=== PATIENT | female | born 2000 | race Caucasian/White ===

== ENCOUNTER 2021-02-15 23:02 | Emergency (ER) | payer BC ==
[2021-02-15] MEDS ORDERED: Ibuprofen 400 MG Tab PO ONE (23:30)
--- NOTE | 2021-02-15 23:57 | EDM.PDOC ---
ED HPI GENERAL MEDICAL PROBLEM - General Chief Complaint: ENT Problem Stated Complaint: LT EAR COMPLAINT Time Seen by Provider: 02/15/21 23:55 Source of Information: Reports: Patient History Limitations: Reports: No Limitations - History of Present Illness INITIAL COMMENTS - FREE TEXT/NARRATIVE: Patient is a 20-year-old female presenting with a chief complaint of ear fullness and ear pain on the left side. Patient states that yesterday, she noticed some nasal congestion, sore throat in the this afternoon she developed some fullness in her left ear. She put some hydrogen peroxide in her ear which seemed to improve her throat symptoms but her ear seem to be no different. Otherwise, she is taken some Mucinex with little relief. She denies fevers, chills, body aches, shortness of breath, discharge from the ear, bleeding from the ear. She is unvaccinated against COVID-19. She has no other medical issues. Left Ear Pain Score (Numeric/FACES): 3 - Related Data Allergies Allergy/AdvReac Type Severity Reaction Status Date / Time No Known Allergies Allergy Verified 02/15/21 23:16 Home Meds: Home Meds Escitalopram Oxalate [Lexapro] 10 mg PO BEDTIME 02/15/21 [History] Past Medical History Psychiatric History: Reports: Anxiety, Depression Social & Family History - Tobacco Use Years of Tobacco use: 4 - Caffeine Use Caffeine Use: Reports: Coffee, Soda - Recreational Drug Use Recreational Drug Use: No ED ROS ENT - Review of Systems Review Of Systems: Comprehensive ROS is negative, except as noted in HPI. ED EXAM, ENT - Physical Exam Exam: See Below Text/Narrative:: I have reviewed the triage vital signs Const: Well nourished, well developed, appears stated age Eyes: Pupils Equal and reactive to light bilaterally, no conjunctival injection HENT: No signs of trauma or swelling, Neck supple without meningismus. Tympanic membranes visualized bilaterally without abnormality. External canals normal bilaterally. Throat exam is unremarkable. Voice normal. CV: Regular Rate Rhythm, Warm, well-perfused extremities RESP: Unlabored respiratory effort GI: soft, non-tender, non-distended, no masses MSK: No gross deformities appreciated Skin: Warm, dry. No rashes Neuro: Alert, medical secretary II-XII grossly intact. Sensation and motor function of extremities grossly intact. Psych: Appropriate mood and affect. Course - Vital Signs Last Recorded V/S: Last Vital Signs Temp 37.1 C 02/15/21 23:12 Pulse 83 02/15/21 23:12 Resp 20 02/15/21 23:12 BP 137/86 02/15/21 23:12 Pulse Ox 100 02/15/21 23:12 - Orders/Labs/Meds Labs: Laboratory Tests 02/15/21 Range/Units 23:30 SARS-CoV-2 RNA (DARÍO) Negative (NEGATIVE) Meds: Medications Discontinued Medications Generic Name Dose Route Start Last Admin Trade Name Maurisio PRN Reason Stop Dose Admin Ibuprofen 400 mg 02/15/21 23:30 02/15/21 23:37 Ibuprofen 400 Mg Tab PO 02/15/21 23:31 400 mg ONETIME ONE Administration Departure - Departure Time of Disposition: 00:47 Disposition: Home, Self-Care 01 Clinical Impression: Viral URI - Discharge Information Instructions: Upper Respiratory Infection, Adult, [id number] Referrals: PCP,Unobtain [Primary Care Provider] - Forms: ED Department Discharge Additional Instructions: I recommend drinking plenty of fluids. In addition, I recommend use of ibuprofen 600 mg every 8 hours along with saline nasal spray to help reduce congestion. Follow-up with primary care provider in the next 1 to 2 days. Sepsis Event Note (ED) - Evaluation Sepsis Screening Result: No Definite Risk - Focused Exam Vital Signs: Vital Signs Temp Pulse Resp BP Pulse Ox 02/15/21 23:12 37.1 C 83 20 137/86 100 - Assessment/Plan Assessment:: Patient is 20-year-old female with signs and symptoms consistent with URI. No evidence of otitis media, externa, COVID-19. Vital signs stable. Patient discharged with outpatient follow-up.
== END 2021-02-16 00:57 | disposition home or self-care (01) ==
LOC: JD.ED 23:02
DX: J06.9 Acute upper respiratory infection, unspecified (principal); Z72.0 Tobacco use; Z20.822 Contact with and (suspected) exposure to COVID-19
CPT/HCPCS: 87635; 99283; A9270; U0002

== ENCOUNTER 2023-02-01 17:41 | Emergency (ER) | payer BC | END 2023-02-01 21:40 | disposition home or self-care (01) | LOC: JD.ED 17:41 | DX: O20.0 Threatened abortion (principal); O36.0111 Maternal care for anti-D [Rh] antibodies, first trimester, fetus 1; Z3A.01 Less than 8 weeks gestation of pregnancy | CPT/HCPCS: 36415; 76817; 76817-26; 84702; 86900; 86901; 99284; J2790 ==

== ENCOUNTER 2023-03-15 12:54 | Emergency (ER) | payer BC ==
[2023-03-15] MEDS ORDERED: Ondansetron 4 MG/2 ML SDV IVPUSH ONE (13:41)
[2023-03-15] MEDS ORDERED: Sodium Chloride 0.9% 1,000 ML IV STA (13:41)
[2023-03-15] MEDS ORDERED: Sodium Chloride 0.9% 10 ML Syringe FLUSH PRN (13:41)
[2023-03-15 14:22] LABS: BASOPHILS PERCENT AUTO 0.4 % (0.0-1.0); EOSINOPHILS ABSOLUTE AUTO 0.1 K/mm3 (0.0-0.4); HEMATOCRIT 35.2 % (37.0-47.0); HEMOGLOBIN 12.2 gm/dl (12.0-16.0); IMMATURE GRAN ABSOLUTE AUTO 0.03 K/mm3 (0.00-0.05); IMMATURE GRAN PERCENT AUTO 0.3 % (0.0-0.4); LYMPHOCYTES ABSOLUTE AUTO 1.8 K/mm3 (1.0-4.8); LYMPHOCYTES PERCENT AUTO 19.1 % (24.0-44.0); MEAN CORPUSCULAR HEMOGLOBIN 27.7 pg (28.0-32.0); MEAN CORPUSCULAR HGB CONC 34.7 g/dl (32.0-36.0); MEAN PLATELET VOLUME 10.5 fl (9.4-12.3); MONOCYTES ABSOLUTE AUTO 0.6 K/mm3 (0.0-0.8); NEUTROPHILS ABSOLUTE AUTO 6.8 K/mm3 (1.8-7.7); NEUTROPHILS PERCENT AUTO 73.2 % (41.0-71.0); PLATELET COUNT,PLT 216 K/mm3 (150-400); WHITE BLOOD CELL COUNT,WBC 9.33 K/mm3 (3.9-11.3)
[2023-03-15 14:45] LABS: A/G RATIO 0.8 (1-2); ALBUMIN 3.3 g/dl (3.4-5.0); ANION GAP 15.6 (5-15); BILIRUBIN TOTAL 0.5 mg/dL (0.2-1.0); BUN/CREATININE RATIO 13.3 (14-18); CALCIUM 8.9 mg/dL (8.5-10.1); CREATININE 0.6 mg/dL (0.55-1.02); EST CRCL DRUG DOSING (CG) 133.46 mL/min; POTASSIUM,K 3.6 mEq/L (3.5-5.1); PROTEIN TOTAL,TP 7.3 g/dl (6.4-8.2)
[2023-03-15 16:06] LABS: APPEARANCE,URINE SLT CLOUDY (Clear); BILIRUBIN,URINE NEGATIVE (Negative); COLOR,URINE YELLOW (Yellow); GLUCOSE,URINE NEGATIVE (Negative); KETONES,URINE 2+ (Negative); LEUKOCYTE ESTERASE,URINE TRACE (Negative); NITRITE,URINE POSITIVE (Negative); OCCULT BLOOD,URINE NEGATIVE (Negative); PROTEIN,URINE NEGATIVE (Negative)
[2023-03-15 16:37] LABS: BACTERIA,URINE MANY /hpf (FEW); MUCUS,URINE FEW /hpf (FEW); RBC,URINE 0-5 /hpf (0-5); WBC,URINE 40-50 /hpf (0-5)
== END 2023-03-15 17:00 | disposition home or self-care (01) ==
LOC: JD.ED 12:54
DX: O21.9 Vomiting of pregnancy, unspecified (principal); O23.91 Unspecified genitourinary tract infection in pregnancy, first trimester; Z3A.13 13 weeks gestation of pregnancy
CPT/HCPCS: 36415; 80053; 81001; 85025; 87086; 87088; 87186; 96361; 96374; 99283; 99284-25; J2405; J3490; J7030

== ENCOUNTER 2023-09-13 13:34 | Inpatient (IN) | payer BC ==
[2023-09-13] MEDS ORDERED: Calcium Carbonate 500 MG Tab.Chew PO PRN (14:29)
[2023-09-13] MEDS ORDERED: Lidocaine 1% 50 ML MDV INJECT PRN (14:29)
[2023-09-13] MEDS ORDERED: Nalbuphine 10 MG/ML Syringe IVPUSH PRN (14:29)
[2023-09-13 14:49] LABS: BASOPHILS ABSOLUTE AUTO 0.1 K/mm3 (0.0-0.2); BASOPHILS PERCENT AUTO 0.5 % (0.0-1.0); EOSINOPHILS PERCENT AUTO 0.3 % (0.0-6.0); HEMATOCRIT 33.6 % (37.0-47.0); HEMOGLOBIN 10.6 gm/dl (12.0-16.0); IMMATURE GRAN ABSOLUTE AUTO 0.08 K/mm3 (0.00-0.05); IMMATURE GRAN PERCENT AUTO 0.6 % (0.0-0.4); LYMPHOCYTES ABSOLUTE AUTO 1.7 K/mm3 (1.0-4.8); LYMPHOCYTES PERCENT AUTO 13.8 % (24.0-44.0); MEAN CORPUSCULAR HEMOGLOBIN 23.8 pg (28.0-32.0); MEAN CORPUSCULAR HGB CONC 31.5 g/dl (32.0-36.0); MEAN CORPUSCULAR VOLUME 75.5 fl (83.0-99.0); MEAN PLATELET VOLUME 11.8 fl (9.4-12.3); MONOCYTES ABSOLUTE AUTO 1.2 K/mm3 (0.0-0.8); MONOCYTES PERCENT AUTO 9.8 % (0.0-8.0); NEUTROPHILS ABSOLUTE AUTO 9.3 K/mm3 (1.8-7.7); PLATELET COUNT,PLT 251 K/mm3 (150-400); RED BLOOD CELL COUNT 4.45 M/mm3 (4.10-5.30); WHITE BLOOD CELL COUNT,WBC 12.39 K/mm3 (3.9-11.3)
[2023-09-13 14:51] LABS: CREATININE 0.9 mg/dL (0.55-1.02); EST CRCL DRUG DOSING (CG) 88.23 mL/min; URIC ACID 4.3 mg/dL (2.6-6.0)
[2023-09-13 15:00] LABS: CREATININE,URINE RAND 69.2 mg/dL (30.0-125.0); PROTEIN CREATININE RATIO,URINE 465.3 mg/g (0-149); PROTEIN,URINE RANDOM 32.2 mg/dL (0.0-11.8)
[2023-09-13] MEDS: Oxytocin/Lactated Ringers 30 UNIT/500 ML BAG IV SCH (15:40)
[2023-09-13] MEDS: Lactated Ringers 1,000 ML IV SCH (15:40)
[2023-09-13] MEDS: Ondansetron 4 MG/2 ML SDV IVPUSH PRN (17:30)
[2023-09-13] MEDS ORDERED: diphenhydrAMINE 50 MG/ML SDV IVPUSH PRN (19:56)
[2023-09-13] MEDS ORDERED: ePHEDrine 50 MG/ML SDV IVPUSH PRN (19:56)
[2023-09-13] MEDS: fentaNYL 100 MCG/2 ML SDV EPIDUR PRN (20:08)
[2023-09-13] MEDS: Bupivacaine/fentaNYL/NS 100 ML Bag EPIDUR PRN (20:09)
[2023-09-14] MEDS ORDERED: Bupivacaine 0.25% 10 ML SDV ONE
[2023-09-14] MEDS: Oxytocin/Lactated Ringers 30 UNIT/500 ML BAG IV SCH (01:16)
[2023-09-14] MEDS: Benzocaine/Menthol 20%-0.5% Spray 78 GM Cannister TOP PRN (02:47)
[2023-09-14] MEDS: Witch Hazel Medicated Pads 40/Jar TOP PRN (02:47)
[2023-09-14] MEDS: Ibuprofen 600 MG Tab PO SCH (02:52)
[2023-09-14] MEDS: Acetaminophen 325 MG Tab PO PRN (12:08)
[2023-09-14] MEDS: Docusate Sodium 100 MG Cap PO PRN (12:08)
== END 2023-09-15 13:25 | disposition home or self-care (01) | DRG 560 ==
LOC: JD.OBCHECK 13:34 → JD.OB 13:40 → JD.OBCHECK 15:32 → JD.OB 15:32 → OBSVTOIN 09-14 00:56 → JD.OB 09-14 00:57
PROVIDERS: ADMIT Obstetrics & Gynecology; ATTEND Obstetrics & Gynecology
PROC: 10E0XZZ Delivery of Products of Conception, External Approach (ICD-10-PCS; principal; 2023-09-14)
PROC: 10907ZC Drainage of Amniotic Fluid, Therapeutic from Products of Conception, Via Natural or Artificial Opening (ICD-10-PCS; 2023-09-14)
PROC: 3E033VJ Introduction of Other Hormone into Peripheral Vein, Percutaneous Approach (ICD-10-PCS; 2023-09-14)
PROC: 0UQMXZZ Repair Vulva, External Approach (ICD-10-PCS; 2023-09-14)
PROC: 3E0R3BZ Introduction of Anesthetic Agent into Spinal Canal, Percutaneous Approach (ICD-10-PCS; 2023-09-14)
PROC: 00HU33Z Insertion of Infusion Device into Spinal Canal, Percutaneous Approach (ICD-10-PCS; 2023-09-14)
PROC: 3E0334Z Introduction of Serum, Toxoid and Vaccine into Peripheral Vein, Percutaneous Approach (ICD-10-PCS; 2023-09-14)
DX: O14.04 Mild to moderate pre-eclampsia, complicating childbirth (principal); Z37.0 Single live birth; O70.0 First degree perineal laceration during delivery; O26.893 Other specified pregnancy related conditions, third trimester; Z67.41 Type O blood, Rh negative; Z3A.38 38 weeks gestation of pregnancy; Z86.16 Personal history of COVID-19
CPT/HCPCS: 36415; 51702; 59025; 59409; 82565; 82570; 83615; 84156; 84450; 84460; 84520; 84550; 85025; 85461; 86592; 86850; 86870; 86900; 86901; A9270-GY; J0665; J2405; J2790; J3010; J3490; J7120; J7999

== ENCOUNTER 2024-05-31 19:06 | Emergency (ER) | payer SELFPAY ==
[2024-05-31] MEDS ORDERED: Sodium Chloride 0.9% 10 ML Syringe FLUSH PRN (19:43)
[2024-05-31 19:50] LABS: BASOPHILS PERCENT AUTO 0.2 % (0.0-1.0); EOSINOPHILS ABSOLUTE AUTO 0.2 K/mm3 (0.0-0.4); EOSINOPHILS PERCENT AUTO 0.9 % (0.0-6.0); HEMOGLOBIN 10.2 gm/dl (12.0-16.0); IMMATURE GRAN ABSOLUTE AUTO 0.52 K/mm3 (0.00-0.05); LYMPHOCYTES ABSOLUTE AUTO 0.9 K/mm3 (1.0-4.8); LYMPHOCYTES PERCENT AUTO 3.6 % (24.0-44.0); MEAN CORPUSCULAR HEMOGLOBIN 27.1 pg (28.0-32.0); MEAN CORPUSCULAR VOLUME 79.8 fl (83.0-99.0); MEAN PLATELET VOLUME 11.5 fl (9.4-12.3); MONOCYTES ABSOLUTE AUTO 0.7 K/mm3 (0.0-0.8); MONOCYTES PERCENT AUTO 2.7 % (0.0-8.0); NEUTROPHILS PERCENT AUTO 90.6 % (41.0-71.0); PLATELET COUNT,PLT 258 K/mm3 (150-400); RED BLOOD CELL COUNT 3.76 M/mm3 (4.10-5.30); WHITE BLOOD CELL COUNT,WBC 25.44 K/mm3 (3.9-11.3)
[2024-05-31 20:05] LABS: A/G RATIO 0.4 (1-2); ALANINE AMINOTRANSFERASE,ALT 18 U/L (14-59); ALKALINE PHOSPHATASE 131 U/L (46-116); ANION GAP 14.5 (5-15); ASPARTATE AMNIOTRANSFERASE,AST 13 U/L (15-37); BILIRUBIN TOTAL 1.4 mg/dL (0.2-1.0); BLOOD UREA NITROGEN,BUN 8 mg/dL (7-18); BUN/CREATININE RATIO 8.9 (14-18); CALCIUM 8.5 mg/dL (8.5-10.1); CARBON DIOXIDE,CO2 21 mEq/L (21-32); CHLORIDE,CL 99 mEq/L (98-107); CREATININE 0.9 mg/dL (0.55-1.02); EST CRCL DRUG DOSING (CG) 87.48 mL/min; ESTIMATED GFR 92 mL/min (>60); GLUCOSE RANDOM 120 mg/dL (70-99); LIPASE 11 U/L (16-77); MAGNESIUM 1.7 mg/dL (1.8-2.4); POTASSIUM,K 3.5 mEq/L (3.5-5.1); PROTEIN TOTAL,TP 6.6 g/dl (6.4-8.2); SODIUM,NA 131 mEq/L (136-145)
[2024-05-31 20:07] LABS: TROPONIN I HIGH SENSITIVITY < 4 pg/mL (<=51)
[2024-05-31] MEDS: Sodium Chloride 0.9% 1,000 ML IV SCH (20:13)
[2024-05-31] MEDS: HYDROmorphone 0.5 MG/0.5 ML Syringe IVPUSH ONE (20:14)
[2024-05-31] MEDS: Metoclopramide 10 MG/2 ML SDV IVPUSH ONE (20:14)
[2024-05-31 21:38] LABS: APPEARANCE,URINE SLT CLOUDY (Clear); BILIRUBIN,URINE 1+ (Negative); COLOR,URINE DARK YELLOW (Yellow); GLUCOSE,URINE NEGATIVE (Negative); KETONES,URINE NEGATIVE (Negative); LEUKOCYTE ESTERASE,URINE 3+ (Negative); NITRITE,URINE POSITIVE (Negative); OCCULT BLOOD,URINE TRACE-INTACT (Negative); PH,URINE 6.5 (5.0-8.0); PROTEIN,URINE 3+ (Negative); UROBILINOGEN,URINE >=8.0 (0.2-1.0)
[2024-05-31 21:46] LABS: BACTERIA,URINE MANY /hpf (FEW); WBC,URINE TOO NUMEROUS TO CNT /hpf (0-5)
[2024-05-31 21:47] LABS: MUCUS,URINE FEW /hpf (FEW)
[2024-05-31] MEDS: cefTRIAXone 2 GM Vial IVPUSH ONE (22:59)
[2024-05-31] MEDS: Acetaminophen 325 MG Tab PO ONE (23:54)
== END 2024-05-31 23:50 | disposition home or self-care (01) ==
LOC: JD.ED 19:06
DX: O23.02 Infections of kidney in pregnancy, second trimester (principal); Z86.16 Personal history of COVID-19; Z79.82 Long term (current) use of aspirin; Z79.899 Other long term (current) drug therapy; Z3A.24 24 weeks gestation of pregnancy
CPT/HCPCS: 36415; 71045; 80053; 81001; 83690; 83735; 84484; 85025; 87428; 93005; 96361; 96374; 96375; 99285; A9270; J0696; J2765; J7030; 93010; 99284

== ENCOUNTER 2024-09-16 00:26 | Inpatient (IN) | payer SELFPAY ==
[2024-09-16] MEDS ORDERED: Ondansetron 4 MG/2 ML SDV IVPUSH PRN (19:03)
[2024-09-16] MEDS ORDERED: Nalbuphine 10 MG/1 ML Vial IVPUSH PRN (19:03)
[2024-09-16] MEDS ORDERED: Sodium Chloride 0.9% 10 ML Syringe FLUSH PRN (19:03)
[2024-09-16] MEDS ORDERED: Oxytocin/0.9 % Sodium Chloride 30 UNIT/500 ML BAG IV SCH (19:15)
[2024-09-16 19:42] LABS: BASOPHILS ABSOLUTE AUTO 0.0 K/mm3 (0.0-0.2); BASOPHILS PERCENT AUTO 0.3 % (0.0-1.0); EOSINOPHILS ABSOLUTE AUTO 0.1 K/mm3 (0.0-0.4); EOSINOPHILS PERCENT AUTO 0.6 % (0.0-6.0); IMMATURE GRAN ABSOLUTE AUTO 0.04 K/mm3 (0.00-0.05); IMMATURE GRAN PERCENT AUTO 0.4 % (0.0-0.4); LYMPHOCYTES ABSOLUTE AUTO 2.2 K/mm3 (1.0-4.8); LYMPHOCYTES PERCENT AUTO 20.6 % (24.0-44.0); MEAN PLATELET VOLUME 12.8 fl (9.4-12.3); MONOCYTES ABSOLUTE AUTO 0.6 K/mm3 (0.0-0.8); MONOCYTES PERCENT AUTO 5.9 % (0.0-8.0); NEUTROPHILS ABSOLUTE AUTO 7.8 K/mm3 (1.8-7.7); NEUTROPHILS PERCENT AUTO 72.2 % (41.0-71.0); NRBC ABSOLUTE 0.00 (0.00-0.02); NRBC PERCENT 0.0 % (0.0-0.2); PLATELET COUNT,PLT 209 K/mm3 (150-400); RED BLOOD CELL COUNT 4.31 M/mm3 (4.10-5.30); WHITE BLOOD CELL COUNT,WBC 10.74 K/mm3 (3.9-11.3)
[2024-09-16] MEDS: Lactated Ringers 1,000 ML IV SCH (20:29)
[2024-09-16] MEDS ORDERED: ePHEDrine 50 MG/ML SDV IVPUSH PRN (20:44)
[2024-09-16] MEDS: fentaNYL 100 MCG/2 ML SDV EPIDUR PRN (20:55)
[2024-09-16] MEDS: Bupivacaine/fentaNYL/NS 100 ML Bag EPIDUR PRN (20:55)
[2024-09-16] MEDS: diphenhydrAMINE 50 MG/ML SDV IVPUSH PRN (21:51)
[2024-09-16] MEDS: Sodium Chloride 0.9% 10 ML Syringe FLUSH SCH (22:15)
[2024-09-17] MEDS: Oxytocin/0.9 % Sodium Chloride 30 UNIT/500 ML BAG IV SCH (00:26)
[2024-09-17] MEDS: Witch Hazel Medicated Pads 40/Jar TOP PRN (02:26)
[2024-09-17] MEDS: Benzocaine/Menthol 20%-0.5% Spray 78 GM Cannister TOP PRN (02:26)
== END 2024-09-18 12:40 | disposition home or self-care (01) | DRG 807 ==
LOC: JD.OB 00:26 → OBSVTOIN 09-17 00:26 → JD.OB 09-17 00:27
PROVIDERS: ADMIT Obstetrics & Gynecology; ATTEND Obstetrics & Gynecology
PROC: 3E0R3BZ Introduction of Anesthetic Agent into Spinal Canal, Percutaneous Approach (ICD-10-PCS; principal; 2024-09-17)
PROC: 10E0XZZ Delivery of Products of Conception, External Approach (ICD-10-PCS; principal; 2024-09-17)
PROC: 10907ZC Drainage of Amniotic Fluid, Therapeutic from Products of Conception, Via Natural or Artificial Opening (ICD-10-PCS; principal; 2024-09-17)
DX: O99.02 Anemia complicating childbirth (principal); Z37.0 Single live birth; O99.344 Other mental disorders complicating childbirth; Z86.16 Personal history of COVID-19; Z79.82 Long term (current) use of aspirin; Z79.899 Other long term (current) drug therapy; Z67.91 Unspecified blood type, Rh negative; Z3A.39 39 weeks gestation of pregnancy
CPT/HCPCS: 36415; 51702; 59025; 59409; 85025; 85461; 86592; 86850; 86870; 86900; 86901; A9270-GY; J1200; J2791; J3010; J3490; J7120; J7999